=== PATIENT | female | born 1990 | race Caucasian/White ===

== ENCOUNTER 2018-09-30 12:21 | Emergency (ER) | payer OTHER ==
[~2018-09-30] VITALS: Ht 162.6 cm; Wt 61.2 kg
[~2018-09-30 12:21] MED LIST: AMOX1TAB12 PO
== END 2018-09-30 14:20 | disposition home or self-care (01) ==
LOC: ER 12:21
DX: J03.90 Acute tonsillitis, unspecified (principal)

== ENCOUNTER 2021-06-03 10:51 | Emergency (ER) | payer OTHER ==
[~2021-06-03] VITALS: Ht 162.6 cm; Wt 65.8 kg
[2021-06-03] MEDS ORDERED: ZYRTEC10 M3 PO (10:59)
[2021-06-03] MEDS ORDERED: ZITHROMAX TRI-500 MG PO (14:38)
== END 2021-06-03 14:42 | disposition home or self-care (01) ==
LOC: ER 10:51
DX: B34.9 Viral infection, unspecified (principal); Z20.822 Contact with and (suspected) exposure to COVID-19

== ENCOUNTER 2021-08-03 16:51 | Emergency (ER) | payer OTHER ==
[~2021-08-03] VITALS: Ht 162.6 cm; Wt 65.8 kg
[~2021-08-03 16:51] MED LIST changes: +ZITHROMAX TRI-500 MG PO; +ZYRTEC10 M3 PO
[2021-08-03] MEDS ORDERED: ZOFRAN8 MG PO (20:56)
[2021-08-03] MEDS ORDERED: PEPCID AC20 MG PO (20:56)
== END 2021-08-03 21:15 | disposition home or self-care (01) ==
LOC: ER 16:51
DX: K52.9 Noninfective gastroenteritis and colitis, unspecified (principal)